=== PATIENT | female | born 1980 | race African-American/Black ===

== ENCOUNTER 2018-08-05 12:40 | Emergency (ER) | payer BC, OTHER ==
[~2018-08-05] VITALS: Ht 165.1 cm; Wt 111.4 kg
[~2018-08-05 12:40] MED LIST: NOCURR
[2018-08-05] MEDS ORDERED: MIDAZOLAM HCL 2 MG/2 ML VIAL IVP ONE (13:00)
[2018-08-05] MEDS ORDERED: FentaNYL CITRATE-PF 100 MCG/2 ML VIAL IVP ONE (13:00)
[2018-08-05] MEDS ORDERED: NALOXONE HCL 1 MG/ML 2 ML SYG ONE (13:02)
[2018-08-05] MEDS ORDERED: FLUMAZENIL 0.1 MG/ML 5 ML VIAL IVP ONE (13:03)
[2018-08-05 15:29] VITALS: BP 124/77
== END 2018-08-05 15:35 | disposition home or self-care (01) ==
LOC: EMS 12:40
DX: S43.005A Unspecified dislocation of left shoulder joint, initial encounter (principal); X50.0XXA Overexertion from strenuous movement or load, initial encounter; X50.9XXA Other and unspecified overexertion or strenuous movements or postures, initial encounter; Y93.89 Activity, other specified; Y92.89 Other specified places as the place of occurrence of the external cause; Y99.8 Other external cause status
CPT/HCPCS: 23650; 73030; 99285; J2250; J3010; 96374; 96375; 99152; J2310; J3490

== ENCOUNTER 2023-02-17 07:48 | Emergency (ER) | payer BC, OTHER ==
[~2023-02-17] VITALS: Ht 160 cm; Wt 113.6 kg
[2023-02-17 08:07] VITALS: TEMP 98.2
[2023-02-17] MEDS ORDERED: LORazepam 1 MG TABLET PO ONE (08:15)
[2023-02-17] MEDS ORDERED: OxyCODONE HCL/ACETAMINOPHEN 5-325 MG TABLET PO ONE (08:30)
[2023-02-17 08:35] VITALS: BP 114/78; PULSE 85; RESP 20
[2023-02-17] MEDS ORDERED: METH-659 PO (09:29)
[2023-02-17] MEDS ORDERED: METHOCARBAMOL 500 MG TABLET PO ONE (09:30)
== END 2023-02-17 10:33 | disposition home or self-care (01) ==
LOC: EMS 07:49
DX: S43.005A Unspecified dislocation of left shoulder joint, initial encounter (principal); X58.XXXA Exposure to other specified factors, initial encounter; Y93.89 Activity, other specified; Y92.89 Other specified places as the place of occurrence of the external cause; Y99.8 Other external cause status
CPT/HCPCS: 23650; 99284; 73030-TC; Z7502; Z7610